=== PATIENT | male | born 1990 | race African-American/Black ===

== ENCOUNTER 2020-05-16 16:15 | Emergency (ER) | payer OTHER ==
--- NOTE | 2020-05-16 19:40 | ED Physician Documentation ---
PD HPI SKIN - Stated complaint Stated Complaint: THIGH BOIL - Chief complaint Chief Complaint: General - History obtained from History obtained from: Patient - History of Present Illness Timing - onset: How many days ago (3-4) Timing - duration: Days (3-4) Timing - details: Gradual onset (He had gradual onset of a focal area of tenderness and swelling at the right base of the scrotum in the inguinal crease. It is gotten more significantly tender and swollen and is not draining. He tried soaks.) Location: Other (right inguinal posterior area near base of scrotum.) Quality / character: Painful, Discolored (red), Swelling. No: Draining Associated symptoms: No: Fever, Myalgias, N/V/D Similar symptoms before: Diagnosis (Remote history of a similar boil about 10 years ago in the perirectal area and one on the thigh previous to that. No recent problems. He does do cleansing with baby wipes commonly in order to reduce the chance of recurrence.) Recently seen: Not recently seen Review of Systems Constitutional: denies: Fever, Chills, Myalgias GI: denies: Nausea, Vomiting PD PAST MEDICAL HISTORY - Past Medical History Past Medical History: No - Present Medications Home Medications: Ambulatory Orders Medication Instructions Recorded Confirmed Chlorhexidine Gluconate [Hibiclens] 15 ml TP DAILY #236 ml 05/16/20 Hydrocodone/Acetaminophen 1 each PO Q6H PRN #12 tablet 05/16/20 [Hydrocodone-Acetamin 5-325 mg] Ibuprofen [Motrin] 600 mg PO TID PRN #25 tab 05/16/20 Sulfamethox/Trimeth 800/160 1 each PO BID #14 tablet 05/16/20 [Bactrim Ds 800/160] - Allergies Allergies/Adverse Reactions: Allergies Allergy/AdvReac Type Severity Reaction Status Date / Time No Known Drug Allergies Allergy Verified 05/16/20 16:34 PD ED PE NORMAL - Vitals Vital signs reviewed: Yes - General General: Alert and oriented X 3, Well developed/nourished, Other (he does appear in pain) - Abdomen Abdomen: Soft, Non tender - Male Male : Other (He has a localized area of subcutaneous swelling and tenderness in the posterior right inguinal area near the base of the scrotum. There is redness of the skin. No drainage. It is remote from any major vessels.) - Derm Derm: Normal color, Warm and dry - Neuro Neuro: Alert and oriented X 3, No motor deficit, Normal speech Results - Vitals Vitals: Vital Signs - 24 hr 05/16/20 05/16/20 16:29 20:10 Temperature 37.0 C 37.2 C Heart Rate 89 81 Respiratory 14 18 Rate Blood Pressure 138/93 H 166/92 H O2 Saturation 98 96 Oxygen O2 Source Room air Procedures - Abscess I&D (location) right posterior inguinal area Preparation: Lidocaine 1%, With epi Incision: Incised with scalpel, Purulent drainage (A generous amount of odorous purulence came from the area and it was irrigated with saline.), Irrigated. No: Packed, Culture obtained Other: Pt tolerated well, Dressing applied, Antibiotic prescribed Departure - Departure Disposition: 01 Home, Self Care Clinical Impression: Inguinal abscess Condition: Stable Record reviewed to determine appropriate education?: Yes Instructions: ED Abscess IandD Follow-Up: [facility] [Provider Group] Prescriptions: Sulfamethox/Trimeth 800/160 [Bactrim Ds 800/160] 1 each PO BID #14 tablet Chlorhexidine Gluconate [Hibiclens] 15 ml TP DAILY #236 ml Hydrocodone/Acetaminophen [Hydrocodone-Acetamin 5-325 mg] 1 each PO Q6H PRN #12 tablet PRN Reason: Pain Ibuprofen [Motrin] 600 mg PO TID PRN #25 tab PRN Reason: Pain Comments: Warm soaks tonight and tomorrow and try to squeeze out any remaining pus that develops. Ibuprofen 3 times a day for the next several days to week. Bactrim antibiotic twice daily for a week. Cleanse the perineal area or even your whole body with chlorhexidine body wash daily for the next several days to a week. Add Tylenol or hydrocodone if needed for pain. Recheck if not well improving over the next 2 to 3 days. Forms: Activity restrictions Discharge Date/Time: 05/16/20 20:14
[2020-05-16] MEDS: IBUPROFEN 600 MG TABLET PO STA (20:01)
[2020-05-16] MEDS: SULFAMETH/TRIMETH DS 800/160 MG TABLET PO STA (20:01)
[2020-05-16] MEDS: HYDROcod/ACETAM 5/325 MG TABLET PO STA (20:01)
[2020-05-16 20:11] VITALS: BP 166/92
== END 2020-05-16 20:14 | disposition home or self-care (01) ==
LOC: ED 16:15
DX: L02.214 Cutaneous abscess of groin (principal)
CPT/HCPCS: 10060; 99283; 99284; A9270